=== PATIENT | male | born 1955 | race Caucasian/White ===

== ENCOUNTER → 2024-09-03 08:16 | Outpatient (REF) | payer MEDICARE, SELFPAY | LOC: RAD 08:16 | PROVIDERS: ATTENDING PHYSICIAN Internal Medicine Hematology & Oncology; FAMILY PHYSICIAN Family Medicine | DX: R79.89 Other specified abnormal findings of blood chemistry (principal); R63.4 Abnormal weight loss | CPT/HCPCS: 74177; Q9967 ==

== ENCOUNTER → 2024-09-24 08:05 | Outpatient (REF) | payer MEDICARE, SELFPAY | LOC: RAD 08:05 | PROVIDERS: ATTENDING PHYSICIAN Nurse Practitioner Primary Care | DX: R63.4 Abnormal weight loss (principal); D64.9 Anemia, unspecified; R79.89 Other specified abnormal findings of blood chemistry; E83.10 Disorder of iron metabolism, unspecified | CPT/HCPCS: 78306; A9503 ==

== ENCOUNTER → 2025-03-22 09:01 | Outpatient (REF) | payer MEDICARE, SELFPAY | LOC: HWRAD 09:01 | PROVIDERS: ATTENDING PHYSICIAN Internal Medicine Critical Care Medicine; FAMILY PHYSICIAN Family Medicine | DX: R91.1 Solitary pulmonary nodule (principal) | CPT/HCPCS: 71250 ==

== ENCOUNTER 2025-04-12 06:07 | Day surgery (SDC) | payer MEDICARE, SELFPAY ==
[2025-04-06 13:58] VITALS: BMI 22.5
[2025-04-06 14:29] LABS: Hematocrit 34.0 % (39.0-52.0); Hemoglobin 11.5 g/dL (13.0-18.0); Mean Corp Hgb Conc. 33.8 g/dL (33.0-37.0); Mean Corpuscular Volume 92.1 fL (80.0-94.0); Platelet Count 170 10^3/uL (130-400); Red Cell Dist. Width 13.4 % (11.5-14.5)
[2025-04-06 14:43] LABS: INR 1.03; PT 13.8 Sec (11.4-14.6)
[2025-04-06 14:44] LABS: APTT 30.3 Sec (23.4-35.0)
[2025-04-06 15:06] LABS: Blood Urea Nitrogen 24 mg/dl (9-20); Calcium 9.7 mg/dl (8.4-10.2); Carbon Dioxide 28 mmol/L (22-30); Chloride 106 mmol/L (98-107); Estimated Creatinine Clearance 66 ml/min; Glucose 86 mg/dl (70-99); Potassium 4.2 mmol/L (3.5-5.1); Sodium 140 mmol/L (135-145); eGFR > 60.00
[2025-04-12] VITALS (7 sets, daily range): BP systolic 92–112; BP diastolic 57–68; BMI 22.5
[2025-04-12] MEDS: VENTOLIN NEBULES 2.5 MG INH (09:08)
== END 2025-04-12 11:10 | disposition home or self-care (01) ==
LOC: SDS 06:07
PROVIDERS: ATTENDING PHYSICIAN Internal Medicine; FAMILY PHYSICIAN Family Medicine
DX: R91.1 Solitary pulmonary nodule (principal)
CPT/HCPCS: 31629; 31624; 31623; 31627; 31654; 31652; 36415; 71045; 76000; 80048; 85027; 85610; 85730; 87015; 87070; 87102; 87116; 87205; 88112; 88173; 88305; 93005; C1887